=== PATIENT | male | born 1985 | race Caucasian/White ===

== ENCOUNTER 2017-06-18 05:33 | Emergency (ER) | payer SELFPAY ==
[~2017-06-18] VITALS: Ht 177.8 cm; Wt 85.0 kg
[~2017-06-18 05:33] MED LIST: DICL-86 PO; DOXY100T PO; PENI500T PO; Z.0.NO CURRENT MEDS
[2017-06-18 05:35] VITALS: BP 145/73; PULSE 88; RESP 18; TEMP 97.3; O2SAT 99
--- NOTE | 2017-06-18 06:26 | PD ---
HPI Chief Complaint: Flank/Kidney Pain Time Seen by Provider: 06:08 Travel History International Travel<30 days: No Contact w/Intl Traveler<30days: No Traveled to known affect area: No History of Present Illness HPI Patient is a 31-year-old male presents emergency department for the right flank pain radiating down to his groin which is intermittent. Patient states he just got out of shelter and has not had some pain medicine for some time but the pain started after he got out of shelter. Patient also did endorses some painful urination. Denies any injuries. States his pain is colicky, severe, right flank radiating to groin. PFSH Past Medical History Immunizations Current: Yes Tetanus Vaccination: Unknown Influenza Vaccination: No Social History Alcohol Use: No Tobacco Use: No Substance Use: No Allergies-Medications (Allergen,Severity, Reaction): Coded Allergies: No Known Allergies (Verified Adverse Reaction, Unknown, 06/18/17) Reported Meds & Prescriptions Reported Meds & Active Scripts Active Voltaren (Diclofenac Sodium) 75 Mg Tabec 75 Mg PO BID Pen Vk (Penicillin V Potassium) 500 Mg Tab 500 Mg PO QID 10 Days Doxycycline Hyclate 100 Mg Tab 1 Tab PO Q12H 14 Days Reported No Current Meds (Miscellaneous Medication) Misc Review of Systems Except as stated in HPI: all other systems reviewed are Neg Physical Exam Narrative GENERAL: Well-developed, mildly uncomfortable but in no obvious distress per SKIN: Focused skin assessment warm/dry. HEAD: Atraumatic. Normocephalic. EYES: Pupils equal and round. No scleral icterus. No injection or drainage. ENT: No nasal bleeding or discharge. Mucous membranes pink and moist. NECK: Trachea midline. No JVD. CARDIOVASCULAR: Regular rate and rhythm. No murmur appreciated. RESPIRATORY: No accessory muscle use. Clear to auscultation. Breath sounds equal bilaterally. GASTROINTESTINAL: Abdomen soft, non-tender, nondistended. Hepatic and splenic margins not palpable. Positive CVA tenderness on the right. Negative on the left. Abdomen is otherwise benign. MUSCULOSKELETAL: No obvious deformities. No clubbing. No cyanosis. No edema. NEUROLOGICAL: Awake and alert. No obvious cranial nerve deficits. Motor grossly within normal limits. Normal speech. PSYCHIATRIC: Appropriate mood and affect; insight and judgment normal. Data Data Last Documented VS Vital Signs Date Time Temp Pulse Resp B/P (MAP) Pulse Ox O2 Delivery O2 Flow Rate FiO2 06/18/17 07:05 97 Nasal Cannula 2.00 Orders Orders Urinalysis - C+S If Indicated (06/18/17 05:53) Basic Metabolic Panel (Bmp) (06/18/17 06:16) Complete Blood Count With Diff (06/18/17 06:16) Ct Abd/Pel W/O Iv Contrast (06/18/17 06:16) Iv Access Insert/Monitor (06/18/17 06:16) Ecg Monitoring (06/18/17 06:16) Oximetry (06/18/17 06:16) Sodium Chloride 0.9% Flush (Ns Flush) (06/18/17 06:30) Ketorolac Inj (Toradol Inj) (06/18/17 06:30) Labs Laboratory Tests Test 06/18/17 05:58 06/18/17 06:55 Urine Color YELLOW Urine Turbidity CLEAR Urine pH 5.5 Urine Specific [place] 1.033 Urine Protein TRACE mg/dL Urine Glucose (UA) NEG mg/dL Urine Ketones NEG mg/dL Urine Occult Blood TRACE Urine Nitrite NEG Urine Bilirubin NEG Urine Urobilinogen LESS THAN 2.0 MG/DL Urine Leukocyte Esterase NEG Urine RBC 1 /hpf Urine WBC 2 /hpf Urine Mucus FEW /lpf Microscopic Urinalysis Comment CULT NOT INDICATED White Blood Count 12.7 TH/MM3 Red Blood Count 5.01 MIL/MM3 Hemoglobin 14.9 GM/DL Hematocrit 43.5 % Mean Corpuscular Volume 87.0 FL Mean Corpuscular Hemoglobin 29.8 PG Mean Corpuscular Hemoglobin Concent 34.3 % Red Cell Distribution Width 12.5 % Platelet Count 323 TH/MM3 Mean Platelet Volume 7.5 FL Neutrophils (%) (Auto) 60.6 % Lymphocytes (%) (Auto) 28.2 % Monocytes (%) (Auto) 6.8 % Eosinophils (%) (Auto) 3.7 % Basophils (%) (Auto) 0.7 % Neutrophils # (Auto) 7.7 TH/MM3 Lymphocytes # (Auto) 3.6 TH/MM3 Monocytes # (Auto) 0.9 TH/MM3 Eosinophils # (Auto) 0.5 TH/MM3 Basophils # (Auto) 0.1 TH/MM3 CBC Comment DIFF FINAL Differential Comment Blood Urea Nitrogen 10 MG/DL Creatinine 0.99 MG/DL Random Glucose 84 MG/DL Calcium Level 9.1 MG/DL Sodium Level 140 MEQ/L Potassium Level 3.7 MEQ/L Chloride Level 106 MEQ/L Carbon Dioxide Level 28.2 MEQ/L Anion Gap 6 MEQ/L Estimat Glomerular Filtration Rate 88 ML/MIN MDM Medical Decision Making Medical Screen Exam Complete: Yes Emergency Medical Condition: Yes Differential Diagnosis Kidney stone, right flank pain, urinary tract infection. Narrative Course Patient was room to the emergency department, given Toradol, never had kidney stones before and a CT scan was ordered to confirm. Last 24 hours Impressions Abdomen/Pelvis CT 06/18/17 0616 Signed Impressions: Service Date/Time: Sunday, June 18, 2017 06:39 - CONCLUSION: Normal examination. Nancy Juan MD Otherwise patient is mildly elevated white blood cell count 12.7 whites but normal differential, chemistry normal, 1 RBC and 2 WBCs with nitrite negative urine. While I was reviewing the patient's records nursing had approached me to state that the patient wanted to sign out AGAINST MEDICAL ADVICE he states that his pain was feeling better and he just wanted to go home. I did not have an opportunity to properly reassess the patient but while we were talking the patient was seen ambulating from the emergency department in no obvious distress . Disposition: 07 AGAINST MEDICAL ADVICE (Eloped) Condition: Stable Oz Medrano MD Jun 18, 2017 06:26
[2017-06-18] MEDS ORDERED: KETOROLAC TROMETHAMINE 30 MG/ML (IVP) VIAL IVP ONE (06:30)
[2017-06-18] MEDS ORDERED: SODIUM CHLORIDE 0.9% FLUSH 10 ML FLUSH IV FLUSH PRN (06:30)
--- NOTE | 2017-06-18 06:56 | RADRPT ---
EXAM DATE/TIME: 06/18/2017 06:39 [facility] COMPARISON: No previous studies available for comparison. INDICATIONS : Right flank pain. ORAL CONTRAST: No oral contrast ingested. RADIATION DOSE: 7.64 CTDIvol (mGy) MEDICAL HISTORY : None SURGICAL HISTORY : None. ENCOUNTER: Initial ACUITY: 1 day PAIN SCALE: 7/10 LOCATION: Right flank TECHNIQUE: Volumetric scanning of the abdomen and pelvis was performed. Using automated exposure control and ad justment of the mA and/or kV according to patient size, radiation dose was kept as low as reasonably achievable to obtain optimal diagnostic quality images. DICOM format image data is available electro nically for review and comparison. FINDINGS: LOWER LUNGS: The visualized lower lungs are clear. LIVER: Homogeneous density without lesion. There is no dilation of the biliary tree. No calcified gallston es. SPLEEN: Normal size without lesion. PANCREAS: Within normal limits. KIDNEYS: Normal in size and shape. There is no mass, stone, or hydronephrosis. ADRENAL GLANDS: Within normal limits. VASCULAR: There is no aortic aneurysm. BOWEL/MESENTERY: The stomach, small bowel, and colon demonstrate no acute abnormality. There is no free intraperitone al air or fluid. Appendix is normal. ABDOMINAL WALL: Within normal limits. RETROPERITONEUM: There is no lymphadenopathy. BLADDER: No wall thickening or mass. REPRODUCTIVE: Within normal limits. INGUINAL: There is no lymphadenopathy or hernia. MUSCULOSKELETAL: Within normal limits for patient age. CONCLUSION: Normal examination. Nancy Juan MD on June 18, 2017 at 6:50 Board Certified Radiologist. This report was verified electronically.
[2017-06-18 07:04] LABS: BILIRUBIN, URINE NEG (NEG); BLOOD, URINE TRACE (NEG); GLUCOSE,URINE NEG (NEG); KETONE, URINE NEG (NEG); MUCUS URINE FEW /lpf (OCC); NITRITE,URINE NEG (NEG); PH, URINE 5.5 (5.0-8.5); URINE COLOR YELLOW (YELLW/STRAW); URINE LEUKOCYTE ESTERASE NEG (NEG)
[2017-06-18 07:05] VITALS: O2SAT 97
[2017-06-18 07:21] LABS: AUTOMATED NEUTROPHIL # 7.7 TH/MM3 (1.8-7.7); BASOPHIL # 0.1 TH/MM3 (0-0.2); BASOPHIL % 0.7 % (0.0-2.0); EOSINOPHIL # 0.5 TH/MM3 (0-0.4); EOSINOPHIL % 3.7 % (0.0-4.0); HEMATOCRIT 43.5 % (39.0-51.0); HEMOGLOBIN 14.9 GM/DL (13.0-17.0); LYMPH % 28.2 % (9.0-44.0); LYMPHOCYTE # 3.6 TH/MM3 (1.0-4.8); MEAN CORPUSCULAR HEMOGLOBIN 29.8 PG (27.0-34.0); MEAN CORPUSCULAR HGB CONC 34.3 % (32.0-36.0); MEAN PLATELET VOLUME 7.5 FL (7.0-11.0); MONO % 6.8 % (0.0-8.0); MONOCYTE # 0.9 TH/MM3 (0-0.9); NEUT % 60.6 % (16.0-70.0); PLATELET COUNT 323 TH/MM3 (150-450); RED BLOOD COUNT 5.01 MIL/MM3 (4.50-5.90); RED CELL DISTRIBUTION WIDTH 12.5 % (11.6-17.2); WHITE BLOOD COUNT 12.7 TH/MM3 (4.0-11.0)
[2017-06-18 07:42] LABS: BICARBONATE 28.2 MEQ/L (21.0-32.0); CALCIUM 9.1 MG/DL (8.5-10.1); CREATININE 0.99 MG/DL (0.60-1.30)
== END 2017-06-18 07:43 | disposition left against medical advice (07) ==
LOC: NEPC 05:33
DX: R10.31 Right lower quadrant pain (principal)
CPT/HCPCS: 74176; 80048; 81001; 85025; 99284; J1885

== ENCOUNTER 2017-06-26 21:57 | Emergency (ER) | payer SELFPAY ==
[~2017-06-26] VITALS: Ht 172.7 cm; Wt 96.4 kg
[2017-06-26 22:05] VITALS: BP 135/82; PULSE 82; RESP 16; TEMP 98.8; O2SAT 100
--- NOTE | 2017-06-26 23:15 | PD ---
HPI Chief Complaint: Complaint Time Seen by Provider: 22:40 Travel History International Travel<30 days: No Contact w/Intl Traveler<30days: No Traveled to known affect area: No History of Present Illness HPI The patient is a 31 year old male who presents to the [facility] emergency department with a history of left scrotum swelling that began 4 years ago. He reports that he went to a facility and had an ultrasound at that time, however he is unsure of the diagnosis. He reports that over the last 6 months the swelling has increased in size. He developed left scrotum pain and left lower quadrant abdominal pain that began 1 and 1/2 weeks ago. He denies any penile discharge, skin lesions, dysuria, urinary frequency, or urinary urgency. He denies any new sexual partners. He has reportedly been with the same partner for the last 8 years. On review of systems, he denies having any fevers, cough , congestion, neck pain, chest pain, shortness of breath, vomiting, diarrhea, or neurologic symptoms. He reports having a family history of testicular cancer. [facility] Past Medical History Narrative Medical The patient's past medical history is significant for MRSA skin infection, kidney stones, swelling in the scrotum since 2013. Medical History: Denies Significant Hx Immunizations Current: Yes Past Surgical History Surgical History: No Previous Surgery Social History Alcohol Use: No Tobacco Use: Yes (10 cigs per day) Substance Use: Yes (MARIJUANA) Allergies-Medications (Allergen,Severity, Reaction): Coded Allergies: butorphanol (Verified Allergy, Intermediate, rash, 06/26/17) ibuprofen (Verified Allergy, Intermediate, rash, 06/26/17) ketorolac (Verified Allergy, Intermediate, rash, 06/26/17) "Shortness of breath" tramadol (Verified Allergy, Intermediate, rash , 06/26/17) Reported Meds & Prescriptions Reported Meds & Active Scripts Active Doxycycline Hyclate 100 Mg Cap 100 Mg PO BID Hydrocodone-Acetaminophen 5-325 mg Tab 1 Tab PO Q6H PRN Review of Systems Except as stated in HPI: all other systems reviewed are Neg General / Constitutional: No: Fever Eyes: No: Visual changes HENT: No: Headaches Cardiovascular: No: Chest Pain or Discomfort Respiratory: No: Shortness of Breath Gastrointestinal: Positive: Abdominal Pain, No: Nausea, Vomiting, Diarrhea Genitourinary: Positive: Other (Scrotal pain and swelling), No: Dysuria Musculoskeletal: No: Pain Skin: No Rash Neurologic: No: Weakness, Focal Abnormalities, Change in Mentation, Slurred Speech, Sensory Disturbance Psychiatric: No: Depression Endocrine: No: Polydipsia Hematologic/Lymphatic: No: Easy Bruising Physical Exam Narrative General: The patient is a well-developed well-nourished male in no acute distress Head and Neck exam: Head is normocephalic atraumatic. Eyes: EOMI, pupils are equal round and reactive to light. Nose: Midline septum with pink mucous membranes Mouth: Dentition unremarkable. Moist mucus membranes. Posterior oropharynx is not erythematous. No tonsillar hypertrophy. Uvula midline. Airway patent. Neck: No palpable lymphadenopathy. No nuchal rigidity. No thyromegaly. Cardiovascular: Regular rate and rhythm without murmurs, gallops, or rubs. No pulse deficit to the extremities. Lungs: Clear to auscultation bilaterally. No wheezes, rhonchi, or rales. Abdomen: Soft, with reported tenderness on palpation of the left lower quadrant of the abdomen. No other tenderness on palpation of the other quadrants of the abdomen. Normal bowel sounds are audible. No guarding, rebound, or rigidity. No tenderness on palpation of McBurney's point. Negative Francois sign. Extremities: No clubbing, cyanosis, or edema. 2+ pulses in all 4 extremities. Back: No spinous process tenderness to palpation. No costovertebral angle tenderness to palpation. Neurologic Exam: Grossly nonfocal. Skin Exam: No rash noted. Intact skin that is warm and dry. Genital exam: The patient is a circumcised male. No genital lesions or rash noted. Patient has left scrotal swelling with slight erythema noted. The patient has tenderness on palpation of the left testicle with enlargement noted.. No palpable hernia. Data Data Last Documented VS Vital Signs Date Time Temp Pulse Resp B/P (MAP) Pulse Ox O2 Delivery O2 Flow Rate FiO2 06/27/17 02:16 06/26/17 23:55 79 16 98 Room Air 06/26/17 22:05 98.8 Orders Orders Complete Blood Count With Diff (06/26/17 22:41) Basic Metabolic Panel (Bmp) (06/26/17 22:41) Iv Access Insert/Monitor (06/26/17 22:41) Ecg Monitoring (06/26/17 22:41) Oximetry (06/26/17 22:41) Gc And Chlamydia Pcr (06/26/17 22:41) Us Testicles W Doppler (06/26/17 22:41) Sodium Chlor 0.9% 1000 Ml Inj (Ns 1000 M (06/27/17 00:00) Acetaminophen (Tylenol) (06/27/17 00:00) Ceftriaxone Inj (Rocephin Inj) (06/27/17 00:00) Azithromycin Powd Pack (Zithromax Powd P (06/27/17 00:00) Ed Discharge Order (06/27/17 01:57) Labs Laboratory Tests Test 06/26/17 23:48 06/26/17 23:54 Chlamydia trachomatis DNA (PCR) NOT DETECTED Neisseria gonorrhoeae DNA (PCR) NOT DETECTED White Blood Count 10.7 TH/MM3 Red Blood Count 5.06 MIL/MM3 Hemoglobin 15.4 GM/DL Hematocrit 44.4 % Mean Corpuscular Volume 87.7 FL Mean Corpuscular Hemoglobin 30.4 PG Mean Corpuscular Hemoglobin Concent 34.6 % Red Cell Distribution Width 12.4 % Platelet Count 319 TH/MM3 Mean Platelet Volume 8.1 FL Neutrophils (%) (Auto) 51.9 % Lymphocytes (%) (Auto) 36.9 % Monocytes (%) (Auto) 6.5 % Eosinophils (%) (Auto) 3.8 % Basophils (%) (Auto) 0.9 % Neutrophils # (Auto) 5.6 TH/MM3 Lymphocytes # (Auto) 4.0 TH/MM3 Monocytes # (Auto) 0.7 TH/MM3 Eosinophils # (Auto) 0.4 TH/MM3 Basophils # (Auto) 0.1 TH/MM3 CBC Comment DIFF FINAL Differential Comment Blood Urea Nitrogen 9 MG/DL Creatinine 0.97 MG/DL Random Glucose 93 MG/DL Calcium Level 8.8 MG/DL Sodium Level 141 MEQ/L Potassium Level 3.8 MEQ/L Chloride Level 103 MEQ/L Carbon Dioxide Level 31.9 MEQ/L Anion Gap 6 MEQ/L Estimat Glomerular Filtration Rate 90 ML/MIN MDM Medical Decision Making Medical Screen Exam Complete: Yes Emergency Medical Condition: Yes Medical Record Reviewed: Yes Interpretation(s) Last Impressions Scrotum Ultrasound 06/26/17 9449 Signed Impressions: Service Date/Time: Tuesday, June 27, 2017 00:35 - CONCLUSION: 1. Bilateral hydroceles greater on the left. 2. Normal flow to both testicles. Devendra Olson MD Differential Diagnosis Hydrocele, versus epididymitis, versus orchitis, versus hernia, versus varicocele Narrative Course During the course of the patient's emergency department visit, the patient's history, examination, and differential diagnosis were reviewed with the patient. The patient was placed on a cardiac cath rn with oximetry and frequent blood pressure monitoring. The patient had IV access obtained and blood work sent for analysis. The patient was initially provided normal saline 1 L IV fluid bolus, Rocephin 1 g IV, Zithromax 1 g p.o. The patient was given Tylenol for pain. The patient's studies were reviewed and remarkable for A CBC that is within normal limits. Basic metabolic profile is within normal limits. A GC and chlamydia test was ordered. An ultrasound of the scrotum that shows bilateral hydroceles greater on the left, normal flow to both testicles. The patient's electronic medical record was reviewed and the patient recently underwent CT scan of the abdomen and pelvis related to these complaints and it was read as negative. The patient will be discharged home with a referral to the urologist for follow- up regarding hydroceles. The patient was discharged home with a prescription for pain medication and doxycycline. The patient is resting comfortably and feels better, is alert and in no distress. The patient's results and examination findings were discussed with the patient. The repeat examination is unremarkable and benign. The history, exam, diagnostic testing, and current condition do not suggest any significant pathology to warrant further testing, continued ED treatment, admission, or surgical evaluation at this point. The vital signs have been stable. The patient does not have uncontrollable pain, intractable vomiting, or other significant symptoms. The patient's condition is stable and appropriate for discharge. The patient will pursue further outpatient evaluation with a primary care physician or other designated or consulting physician as indicated in the discharge instructions. The patient expressed understanding and was agreeable with this plan. Diagnosis Primary Impression: Hydrocele, bilateral Referrals: Larry Childs MD call for appointment Patient Instructions: General Instructions, Hydrocele (ED) Med/Other Pt SpecificInfo: Prescription(s) given Scripts Doxycycline Hyclate (Doxycycline Hyclate) 100 Mg Cap 100 MG PO BID for Infection, #28 CAP 0 Refills Prov: Sandi Teran MD 06/27/17 Hydrocodone-Acetaminophen (Hydrocodone-Acetaminophen) 5-325 mg Tab 1 TAB PO Q6H Y for PAIN, #12 TAB 0 Refills Prov: Sandi Teran MD 06/27/17 Disposition: 01 DISCHARGE HOME Condition: Stable Sandi Teran MD Jun 26, 2017 23:15
[2017-06-26 23:55] VITALS: BP 112/56; PULSE 79; RESP 16; O2SAT 98
[2017-06-27] MEDS ORDERED: SODIUM CHLOR 0.9% 1000 ML INJ 1,000 ML IV ONE
[2017-06-27] MEDS ORDERED: AZITHROMYCIN PWD FOR SUSP 1 GM PACKET PO ONE
[2017-06-27] MEDS ORDERED: cefTRIAXone INJ 1,000 MG in SODIUM CHLORIDE 0.9% INJ 100 ML IV ONE ×2
[2017-06-27] MEDS ORDERED: ACETAMINOPHEN 325 MG TAB PO ONE
[2017-06-27 00:22] LABS: AUTOMATED NEUTROPHIL # 5.6 TH/MM3 (1.8-7.7); BASOPHIL # 0.1 TH/MM3 (0-0.2); BASOPHIL % 0.9 % (0.0-2.0); EOSINOPHIL # 0.4 TH/MM3 (0-0.4); EOSINOPHIL % 3.8 % (0.0-4.0); HEMATOCRIT 44.4 % (39.0-51.0); HEMOGLOBIN 15.4 GM/DL (13.0-17.0); LYMPH % 36.9 % (9.0-44.0); MEAN CELL VOLUME 87.7 FL (80.0-100.0); MEAN CORPUSCULAR HEMOGLOBIN 30.4 PG (27.0-34.0); MEAN CORPUSCULAR HGB CONC 34.6 % (32.0-36.0); MEAN PLATELET VOLUME 8.1 FL (7.0-11.0); MONO % 6.5 % (0.0-8.0); MONOCYTE # 0.7 TH/MM3 (0-0.9); NEUT % 51.9 % (16.0-70.0); PLATELET COUNT 319 TH/MM3 (150-450); RED BLOOD COUNT 5.06 MIL/MM3 (4.50-5.90); RED CELL DISTRIBUTION WIDTH 12.4 % (11.6-17.2); WHITE BLOOD COUNT 10.7 TH/MM3 (4.0-11.0)
[2017-06-27 01:01] LABS: BICARBONATE 31.9 MEQ/L (21.0-32.0); CALCIUM 8.8 MG/DL (8.5-10.1); CREATININE 0.97 MG/DL (0.60-1.30)
--- NOTE | 2017-06-27 01:14 | RADRPT ---
EXAM DATE/TIME: 06/27/2017 00:35 [facility] COMPARISON: No previous studies available for comparison. INDICATIONS : Testicular pain and swelling. MEDICAL HISTORY : Testicular pain and swelling. Tobacco use. SURGICAL HISTORY : None. ENCOUNTER: Initial ACUITY: 3 days PAIN SCORE: 7/10 LOCATION: Bilateral testicle. MEASUREMENTS: RIGHT TESTICLE: 5.3 x 3.4 x 2.7cm LEFT TESTICLE: 4.9 x 3.4 x 3.2cm FINDINGS: RIGHT TESTICLE: Homogeneous echotexture without intra or extratesticular mass. Blood flow is symmetric and within no rmal limits. Small hydrocele. No varicocele. Epididymis is within normal limits. LEFT TESTICLE: Homogeneous echotexture without intra or extratesticular mass. Blood flow is symmetric and within no rmal limits. Large hydrocele. No varicocele. Epididymis is within normal limits. SCROTUM: Within normal limits. CONCLUSION: 1. Bilateral hydroceles greater on the left. 2. Normal flow to both testicles. Devendra Olson MD on June 27, 2017 at 1:10 Board Certified Radiologist. This report was verified electronically.
[2017-06-27] MEDS ORDERED: DOXY100C PO (01:57)
[2017-06-27] MEDS ORDERED: HYDR-3516 PO (01:57)
== END 2017-06-27 02:24 | disposition home or self-care (01) ==
LOC: NEPE 21:57
DX: N43.3 Hydrocele, unspecified (principal); F12.90 Cannabis use, unspecified, uncomplicated; F17.210 Nicotine dependence, cigarettes, uncomplicated
CPT/HCPCS: 76870; 80048; 85025; 87491; 87591; 93975; 96374; 99285; J0696; J7030

== ENCOUNTER 2017-07-08 00:21 | Emergency (ER) | payer SELFPAY ==
[~2017-07-08] VITALS: Ht 177.8 cm; Wt 961.0 kg
[~2017-07-08 00:21] MED LIST changes: -DICL-86 PO; +DOXY100C PO; -DOXY100T PO; +HYDR-3516 PO; -PENI500T PO; -Z.0.NO CURRENT MEDS
[2017-07-08 00:31] VITALS: BP 108/59; PULSE 84; RESP 18; TEMP 98; O2SAT 96
[2017-07-08] MEDS ORDERED: ONDANSETRON HCL 4 MG/2 ML VIAL IV PUSH ONE (01:30)
[2017-07-08] MEDS ORDERED: SODIUM CHLOR 0.9% 1000 ML INJ 1,000 ML IV ONE (01:30)
[2017-07-08 01:43] LABS: AUTOMATED NEUTROPHIL # 7.7 TH/MM3 (1.8-7.7); BASOPHIL # 0.1 TH/MM3 (0-0.2); BASOPHIL % 0.6 % (0.0-2.0); EOSINOPHIL # 0.3 TH/MM3 (0-0.4); EOSINOPHIL % 2.7 % (0.0-4.0); HEMATOCRIT 40.5 % (39.0-51.0); HEMOGLOBIN 13.8 GM/DL (13.0-17.0); LYMPHOCYTE # 1.8 TH/MM3 (1.0-4.8); MEAN CELL VOLUME 86.9 FL (80.0-100.0); MEAN CORPUSCULAR HEMOGLOBIN 29.6 PG (27.0-34.0); MEAN CORPUSCULAR HGB CONC 34.1 % (32.0-36.0); MEAN PLATELET VOLUME 8.3 FL (7.0-11.0); MONO % 8.3 % (0.0-8.0); MONOCYTE # 0.9 TH/MM3 (0-0.9); NEUT % 71.4 % (16.0-70.0); PLATELET COUNT 240 TH/MM3 (150-450); RED BLOOD COUNT 4.66 MIL/MM3 (4.50-5.90); RED CELL DISTRIBUTION WIDTH 11.4 % (11.6-17.2); WHITE BLOOD COUNT 10.8 TH/MM3 (4.0-11.0)
[2017-07-08 01:52] LABS: CHLORIDE 104 MEQ/L (98-107); SODIUM (NA) 139 MEQ/L (136-145)
[2017-07-08 01:56] LABS: ALBUMIN 3.5 GM/DL (3.4-5.0); BICARBONATE 28.6 MEQ/L (21.0-32.0); BLOOD UREA NITROGEN 11 MG/DL (7-18); GLUCOSE,RANDOM 90 MG/DL (74-106)
[2017-07-08 01:58] LABS: ALT (GPT) 21 U/L (12-78)
[2017-07-08 01:59] LABS: AST (GOT) 14 U/L (15-37); CREATININE 0.88 MG/DL (0.60-1.30); GLOMERULAR FILTRATION RATE 100 ML/MIN (>89)
[2017-07-08 02:00] LABS: TOTAL BILIRUBIN ADULT 0.3 MG/DL (0.2-1.0); TOTAL PROTEIN 6.6 GM/DL (6.4-8.2)
[2017-07-08 02:01] LABS: BILIRUBIN, URINE NEG (NEG); BLOOD, URINE NEG (NEG); GLUCOSE,URINE NEG (NEG); KETONE, URINE NEG (NEG); NITRITE,URINE NEG (NEG); PH, URINE 5.5 (5.0-8.5); URINE COLOR YELLOW (YELLW/STRAW); URINE LEUKOCYTE ESTERASE NEG (NEG)
[2017-07-08 02:01] LABS: ALKALINE PHOSPHATASE 89 U/L (45-117)
[2017-07-08 02:05] LABS: RBC, URINE 0-2 /hpf (0-3); SQUAMOUS EPITHELIAL CELL URINE 0-5 /hpf (0-5); WBC, URINE 0-2 /hpf (0-5)
--- NOTE | 2017-07-08 02:20 | RADRPT ---
EXAM DATE/TIME: 07/08/2017 01:53 [facility] COMPARISON: No previous studies available for comparison. INDICATIONS : Cough. MEDICAL HISTORY : None. SURGICAL HISTORY : None. ENCOUNTER: Initial ACUITY: 1 day PAIN SCORE: 0/10 LOCATION: Bilateral chest FINDINGS: Single AP view of the chest. The lungs are clear. Cardiomediastinal silhouette within normal limits. No evidence of pleural effusion or pneumothorax. CONCLUSION: No acute cardiopulmonary disease identified. Ethan Wolff MD on July 08, 2017 at 2:18 Board Certified Radiologist. This report was verified electronically.
--- NOTE | 2017-07-08 02:43 | PD ---
HPI Chief Complaint: Complaint Time Seen by Provider: 01:25 Travel History International Travel<30 days: No Contact w/Intl Traveler<30days: No Traveled to known affect area: No History of Present Illness HPI 31-year-old male presents to the emergency department for complaint of 2 weeks of swelling of the scrotum. Patient states he has had issues with his scrotum having enlargement for 4 years. Patient states that also 1 day he has had cough congestion myalgias arthralgias vomiting abdominal pain and near syncope. Patient states 2 weeks ago he went to the emergency department at [facility] but left before he was evaluated. According to medical record review 06/26/17, patient was normally evaluated, he underwent ultrasound showed bilateral hydroceles left greater than right and normal blood flow to both testicles also was identified to have had PCR for GC and chlamydia which was negative and patient was presumptively treated with Rocephin IV and azithromycin by mouth. Patient's results were discussed with him and he is referred to urology and placed on doxycycline for potential urethritis and hydrocodone. Patient denies any change in his scrotal edema and also denies any recent scrotal or pelvic injury. Patient denies any penile discharge. Patient is unaware of any fever has had chills. Patient has had MRSA skin infections in the past kidney stones and scrotal edema since 2013. Patient states he has not been seen by an urologist. Patient reportedly has family history of testicular cancer. Patient rates his current pain 9-10/10 intensity. Again patient denies any trauma. Patient denies taking any acetaminophen for fever, myalgias, or arthralgias. [facility] Past Medical History Narrative Medical Scrotal edema kidney stones MRSA skin infections; tobacco use marijuana use; nursing notes reviewed Kidney Stones: Yes Integumentary: Yes (MRSA HX: ON TATTO (LEFT ARM)) Immunizations Current: Yes Tetanus Vaccination: < 5 Years Influenza Vaccination: No Past Surgical History Surgical History: No Previous Surgery Social History Alcohol Use: No Tobacco Use: Yes (04/06 PPD) Substance Use: Yes (MARIJUANA) Allergies-Medications (Allergen,Severity, Reaction): Coded Allergies: butorphanol (Verified Allergy, Intermediate, rash, 07/08/17) ibuprofen (Verified Allergy, Intermediate, rash, 07/08/17) ketorolac (Verified Allergy, Intermediate, rash, 07/08/17) "Shortness of breath" tramadol (Verified Allergy, Intermediate, rash , 07/08/17) Reported Meds & Prescriptions Reported Meds & Active Scripts Active No Active Prescriptions or Reported Medications Review of Systems Except as stated in HPI: all other systems reviewed are Neg General / Constitutional: Positive: Chills HENT: Positive: Congestion Cardiovascular: No: Chest Pain or Discomfort Respiratory: Positive: Cough, No: Shortness of Breath, Wheezing Gastrointestinal: Positive: Nausea, Vomiting, Abdominal Pain, No: Diarrhea, Hematemesis, Hematochezia Genitourinary: Positive: Flank Pain, No: Dysuria Musculoskeletal: Positive: Myalgias, Arthralgias Skin: No Rash Psychiatric: Positive: Anxiety Hematologic/Lymphatic: No: Lymph Node Enlargement Physical Exam Narrative GENERAL: Well-developed well-nourished male no acute distress no respiratory distress with nasal congestion; gcs 15. SKIN: Warm and dry. HEAD: Normocephalic. EYES: No scleral icterus. No injection or drainage. ENT: Mucous membranes moist airways patent tympanic membranes no redness dullness or loss of landmarks ; no sinus tenderness to percussion over the frontal and maxillary sinuses. NECK: Supple, trachea midline. No JVD or lymphadenopathy. No meningismus no nuchal rigidity. CARDIOVASCULAR: Regular rate and rhythm without murmurs, gallops, or rubs. RESPIRATORY: Breath sounds equal bilaterally. No accessory muscle use. GASTROINTESTINAL: Abdomen soft, diffusely mildly tender to palpation without guarding or rebound, nondistended. exam: Uncircumcised male with bilateral undescended testicles and left greater than right scrotal fullness possible mass although patient just had ultrasound which showed no evidence of mass and evidence of bilateral hydrocele left greater than right. No inguinal hernias bilaterally. MUSCULOSKELETAL: No cyanosis, or edema. BACK: Nontender without obvious deformity. No CVA tenderness. Data Data Last Documented VS Vital Signs Date Time Temp Pulse Resp B/P (MAP) Pulse Ox O2 Delivery O2 Flow Rate FiO2 07/08/17 00:31 98.0 84 18 108/59 (75) 96 Orders Orders Urinalysis - C+S If Indicated (07/08/17 01:26) Ct Abd/Pel W Iv Contrast(Rout) (07/08/17 ) Influenzae A/B Antigen (07/08/17 01:26) Complete Blood Count With Diff (07/08/17 01:26) Comprehensive Metabolic Panel (07/08/17 01:26) Lipase (07/08/17 01:26) Sodium Chlor 0.9% 1000 Ml Inj (Ns 1000 M (07/08/17 01:30) Ondansetron Inj (Zofran Inj) (07/08/17 01:30) Gc And Chlamydia Pcr (07/08/17 01:26) Drug Screen, Random Urine (07/08/17 01:26) Chest, Single Ap (07/08/17 ) Orthostatic Vital Signs (07/08/17 01:26) Iohexol 350 Inj (Omnipaque 350 Inj) (07/08/17 02:51) Labs Laboratory Tests Test 07/08/17 01:15 07/08/17 01:45 White Blood Count 10.8 TH/MM3 Red Blood Count 4.66 MIL/MM3 Hemoglobin 13.8 GM/DL Hematocrit 40.5 % Mean Corpuscular Volume 86.9 FL Mean Corpuscular Hemoglobin 29.6 PG Mean Corpuscular Hemoglobin Concent 34.1 % Red Cell Distribution Width 11.4 % Platelet Count 240 TH/MM3 Mean Platelet Volume 8.3 FL Neutrophils (%) (Auto) 71.4 % Lymphocytes (%) (Auto) 17.0 % Monocytes (%) (Auto) 8.3 % Eosinophils (%) (Auto) 2.7 % Basophils (%) (Auto) 0.6 % Neutrophils # (Auto) 7.7 TH/MM3 Lymphocytes # (Auto) 1.8 TH/MM3 Monocytes # (Auto) 0.9 TH/MM3 Eosinophils # (Auto) 0.3 TH/MM3 Basophils # (Auto) 0.1 TH/MM3 CBC Comment DIFF FINAL Differential Comment Blood Urea Nitrogen 11 MG/DL Creatinine 0.88 MG/DL Random Glucose 90 MG/DL Total Protein 6.6 GM/DL Albumin 3.5 GM/DL Calcium Level 9.0 MG/DL Alkaline Phosphatase 89 U/L Aspartate Amino Transf (AST/SGOT) 14 U/L Alanine Aminotransferase (ALT/SGPT) 21 U/L Total Bilirubin 0.3 MG/DL Sodium Level 139 MEQ/L Potassium Level 3.9 MEQ/L Chloride Level 104 MEQ/L Carbon Dioxide Level 28.6 MEQ/L Anion Gap 6 MEQ/L Estimat Glomerular Filtration Rate 100 ML/MIN Lipase 150 U/L Urine Color YELLOW Urine Turbidity CLEAR Urine pH 5.5 Urine Specific [place] GREATER/EQUAL 1.030 Urine Protein NEG mg/dL Urine Glucose (UA) NEG mg/dL Urine Ketones NEG mg/dL Urine Occult Blood NEG Urine Nitrite NEG Urine Bilirubin NEG Urine Urobilinogen 0.2 MG/DL Urine Leukocyte Esterase NEG Urine RBC 0-2 /hpf Urine WBC 0-2 /hpf Urine Squamous Epithelial Cells 0-5 /hpf Urine Bacteria NONE /hpf Microscopic Urinalysis Comment CULT NOT INDICATED Urine Opiates Screen NEG Urine Barbiturates Screen NEG Urine Amphetamines Screen NEG Urine Benzodiazepines Screen NEG Urine Cocaine Screen NEG Urine Cannabinoids Screen POS MDM Medical Decision Making Medical Screen Exam Complete: Yes Emergency Medical Condition: Yes Medical Record Reviewed: Yes Interpretation(s) Influenza A/B antigen: Influenza A positive CT abd/pel: CONCLUSION: 1. Large left hydrocele. 2. No other acute findings of the abdomen and pelvis. Ethan Wolff MD on July 08, 2017 at 3:34 Board Certified Radiologist. This report was verified electronically. Last Impressions Chest X-Ray 07/08/17 0000 Signed Impressions: Service Date/Time: Saturday, July 08, 2017 01:53 - CONCLUSION: No acute cardiopulmonary disease identified. Ethan Wolff MD Abdomen/Pelvis CT 07/08/17 0000 Signed Impressions: Service Date/Time: Saturday, July 08, 2017 02:39 - CONCLUSION: 1. Large left hydrocele. 2. No other acute findings of the abdomen and pelvis. Ethan Wolff MD CBC & BMP Diagram 07/08/17 01:15 Total Protein 6.6, Albumin 3.5, Calcium Level 9.0, Alkaline Phosphatase 89, Aspartate Amino Transf (AST/SGOT) 14 L, Alanine Aminotransferase (ALT/SGPT) 21, Total Bilirubin 0.3 Vital Signs Date Time Temp Pulse Resp B/P (MAP) Pulse Ox O2 Delivery O2 Flow Rate FiO2 07/08/17 00:31 98.0 84 18 108/59 (75) 96 Differential Diagnosis Hydrocele, hernia, mass, epididymitis, UTI, abdominal pain, renal colic, viral syndrome, influenza, bronchitis, sinusitis, pneumonia; also to consider torsion Narrative Course IV access obtained specimens collected and sent for resulting patient administered IV fluids and Zofran for complaint of nausea Lab values grossly within normal limits urine drug screen is positive for cannabis; influenza a/B antigen positive for influenza A Patient given first dose of Tamiflu Patient informed of lab results imaging results and stable for outpatient management Diagnosis Primary Impression: Influenza A Additional Impression: Hydrocele, bilateral Referrals: [facility] call for appointment Urologist call for appointment Patient Instructions: General Instructions Departure Forms: Tests/Procedures, Work Release Special Instructions: no work x 4 days Additional Instructions: Increase fluid hydration Take Tylenol/acetaminophen every 4 hours for fever 100.4F or greater Take Zofran as prescribed as needed for nausea and/or vomiting Take Tamiflu to shorten course of influenza virus No work 4 days Return to the emergency department for any concerns or change in condition Follow-up with urology regarding hydrocele and follow-up with his [facility] for medical issues Med/Other Pt SpecificInfo: Prescription(s) given Scripts Ondansetron Odt (Zofran Odt) 4 Mg Tab 4 MG SL Q6HR Y for Nausea/Vomiting, #10 TAB 0 Refills Prov: Jacquelyn Pedersen MD 07/08/17 Oseltamivir (Tamiflu) 75 Mg Cap 75 MG PO BID for Mgmt Viral Infection for 5 Days, #10 CAP 0 Refills Prov: Jacquelyn Pedersen MD 07/08/17 Disposition: 01 DISCHARGE HOME Condition: Stable Jacquelyn Pedersen MD Jul 08, 2017 02:43
[2017-07-08] MEDS ORDERED: IOHEXOL 350 MG/ML 10 ML VIAL (for RAD DIAG) IVCONTRAST ONE (02:51)
--- NOTE | 2017-07-08 03:40 | RADRPT ---
EXAM DATE/TIME: 07/08/2017 02:39 [place] COMPARISON: No previous studies available for comparison. INDICATIONS : Diffuse abdominal pain, left testicular swelling and vomiting. IV CONTRAST: 95 cc Omnipaque 350 (iohexol) IV ORAL CONTRAST: No oral contrast ingested. RADIATION DOSE: 16.11 CTDIvol (mGy) MEDICAL HISTORY : Renal calculi. SURGICAL HISTORY : None. ENCOUNTER: Initial ACUITY: 2 weeks PAIN SCALE: 5/10 LOCATION: Bilateral pelvis abdomen TECHNIQUE: Volumetric scanning of the abdomen and pelvis was performed. Using automated exposure control and ad justment of the mA and/or kV according to patient size, radiation dose was kept as low as reasonably achievable to obtain optimal diagnostic quality images. DICOM format image data is available electro nically for review and comparison. FINDINGS: LOWER LUNGS: The visualized lower lungs are clear. LIVER: Homogeneous density without lesion. There is no dilation of the biliary tree. No calcified gallston es. SPLEEN: Normal size without lesion. PANCREAS: Within normal limits. KIDNEYS: Normal in size and shape. There is no mass, stone or hydronephrosis. ADRENAL GLANDS: Within normal limits. VASCULAR: There is no aortic aneurysm. BOWEL/MESENTERY: No evidence of bowel dilatation. No free air or free fluid. Appendix within normal limits. ABDOMINAL WALL: Within normal limits. RETROPERITONEUM: There is no lymphadenopathy. BLADDER: No wall thickening or mass. REPRODUCTIVE: Large left hydrocele is seen in the scrotum. INGUINAL: There is no lymphadenopathy or hernia. MUSCULOSKELETAL: Within normal limits for patient age. CONCLUSION: 1. Large left hydrocele. 2. No other acute findings of the abdomen and pelvis. Ethan Wolff MD on July 08, 2017 at 3:34 Board Certified Radiologist. This report was verified electronically.
[2017-07-08] MEDS ORDERED: OSEL75 PO (03:52)
[2017-07-08] MEDS ORDERED: ZOFR4TAB3 SL (03:52)
[2017-07-08] MEDS ORDERED: OSELTAMIVIR PHOSPHATE 75 MG CAP PO ONE (04:00)
[2017-07-08 04:15] VITALS: BP 110/60; TEMP 98.8
== END 2017-07-08 04:16 | disposition home or self-care (01) ==
LOC: PHED 00:21
DX: J10.1 Influenza due to other identified influenza virus with other respiratory manifestations (principal); N43.3 Hydrocele, unspecified; F17.210 Nicotine dependence, cigarettes, uncomplicated; Z87.442 Personal history of urinary calculi; Z86.14 Personal history of Methicillin resistant Staphylococcus aureus infection
CPT/HCPCS: 71045; 74177; 80053; 80307; 81001; 83690; 85025; 87491; 87591; 87804; 96361; 96374; 99285; J2405; J7030; Q9967